=== PATIENT | female | born 1980 | race Caucasian/White ===

== ENCOUNTER 2016-08-28 21:10 | Emergency (ER) | payer OTHER ==
[2016-08-28 21:40] VITALS: BP 140/62; PULSE 84; RESP 18; TEMP 98.3
--- NOTE | 2016-08-28 22:00 | ED ---
General Adult HPI - General Chief complaint: Back Pain/Injury Stated complaint: Back Pain-Hx Scoliosis Sx Time Seen by Provider: 08/28/16 21:53 Source: patient, RN notes reviewed Mode of arrival: ambulatory Limitations: no limitations - History of Present Illness Initial comments: Patient is a pleasant 35-year-old female presenting to the emergency Department with lower back pain. Onset of symptoms was 2 or 3 days ago. Discomfort increases with sitting to standing as well as bending over. Discomfort is midline lower back. Patient does have history of scoliosis and surgical repair however does not generally have lower back problems. Patient took Motrin without much improvement. No weakness. No incontinence. No abdominal pain. Patient denies possible . - Related Data Home Medications Medication Instructions Recorded Confirmed Ibuprofen [Motrin] 400 mg PO Q6HR PRN 08/28/16 08/28/16 Naproxen Sodium [Aleve] 440 mg PO Q6H PRN 08/28/16 08/28/16 Previous Rx's Medication Instructions Recorded Hydrocodone/Acetaminophen [[place] 1 each PO Q4HR PRN #15 tab 08/28/16 5-325] Allergies Allergy/AdvReac Type Severity Reaction Status Date / Time No Known Allergies Allergy Verified 08/28/16 22:17 Review of Systems ROS Statement: Those systems with pertinent positive or pertinent negative responses have been documented in the HPI. ROS Other: All systems not noted in ROS Statement are negative. Constitutional: Denies: fever Eyes: Denies: eye pain ENT: Denies: ear pain Respiratory: Denies: cough Cardiovascular: Denies: chest pain Endocrine: Denies: fatigue Gastrointestinal: Denies: abdominal pain, nausea, vomiting Genitourinary: Denies: dysuria Musculoskeletal: Reports: back pain Skin: Denies: rash Neurological: Denies: weakness Past Medical History Additional Past Medical History / Comment(s): scoliosis History of Any Multi-Drug Resistant Organisms: None Reported Past Surgical History: Back Surgery Past Psychological History: No Psychological Hx Reported Smoking Status: Current every day smoker Past Alcohol Use History: None Reported Past Drug Use History: None Reported General Exam Limitations: no limitations General appearance: alert, in no apparent distress Head exam: Present: atraumatic Eye exam: Present: normal appearance, PERRL ENT exam: Present: normal oropharynx Neck exam: Present: normal inspection Respiratory exam: Present: normal lung sounds bilaterally Cardiovascular Exam: Present: regular rate, normal rhythm GI/Abdominal exam: Present: soft. Absent: distended, tenderness Extremities exam: Present: normal inspection, other (Straight leg is negative bilaterally) Back exam: Present: normal inspection, tenderness (Mild tenderness L4-L5 region) Neurological exam: Present: alert. Absent: motor sensory deficit Expanded Sensory exam: Lower Extremity Light Touch: Normal Motor strength exam: RLE: 5, LLE: 5 Psychiatric exam: Present: normal affect, normal mood Skin exam: Absent: rash Course Vital Signs 08/28/16 21:39 Temperature 98.3 F Pulse Rate 84 Respiratory 18 Rate Blood Pressure 140/62 O2 Sat by Pulse 99 Oximetry Medical Decision Making - Medical Decision Making Patient reexamined in updated. - Radiology Data Radiology results: image reviewed (Lower spine x-rays show no acute process) Disposition Clinical Impression: Low back pain Disposition: HOME SELF-CARE Condition: Stable Instructions: Acute Low Back Pain (ED) Additional Instructions: Please follow-up with primary care physician in the next day or 2 for recheck. Return for increased pain, weakness, loss of control of bowel or bladder, fever , worsening symptoms or other concerns. Prescriptions: Hydrocodone/Acetaminophen [[place] 5-325] 1 each PO Q4HR PRN #15 tab PRN Reason: Pain Referrals: None,Stated [Primary Care Provider] - 1-2 days Gato Ramirez MD [STAFF PHYSICIAN] - 1-2 days
--- NOTE | 2016-08-28 22:19 | XR ---
EXAMINATION TYPE: XR lumbar spine 2 or 3V DATE OF EXAM: 08/28/2016 10:14 PM COMPARISON: NONE HISTORY: Low back pain TECHNIQUE: 3 views FINDINGS: There is a mild thoracolumbar levoscoliosis. Disc spaces are normal. Posterior elements are intact. There is paraspinal margarita at the thoracolumbar junction. Sacroiliac joints are normal. IMPRESSION: Mild levoscoliosis. No fracture.
[2016-08-28] MEDS ORDERED: traMADol 50 MG STARTER PACK 3 TAB BTL PO STA (22:25)
== END 2016-08-28 22:35 | disposition home or self-care (01) ==
LOC: EC 21:10
DX: M54.5 Low back pain (principal); M41.9 Scoliosis, unspecified; F17.200 Nicotine dependence, unspecified, uncomplicated
CPT/HCPCS: 72100; 99283

== ENCOUNTER 2017-02-19 15:21 | Emergency (ER) | payer OTHER ==
[2017-02-19] MEDS ORDERED: ONDANSETRON 4 MG ODT STARTER PACK 2 TAB BTL PO STA (15:39)
[2017-02-19] MEDS ORDERED: HYDROmorphone 1 MG/ML 1 ML SYRINGE IM STA (15:40)
[2017-02-19] MEDS ORDERED: ORPHENADRINE 30 MG/ML 2 ML VIAL IM STA (15:41)
[2017-02-19 16:06] VITALS: RESP 18
--- NOTE | 2017-02-19 16:39 | ED ---
Back Pain HPI - General Chief Complaint: Back Pain/Injury Stated Complaint: back pain-[facility] Time Seen by Provider: 02/19/17 15:31 Source: patient, RN notes reviewed, old records reviewed Limitations: no limitations - History of Present Illness Initial Comments: This is a 36-year-old female with a history of scoliosis presenting to emergency Department chief complaint of mid thoracic and cervical back pain as well as lumbar back pain. Patient reports she was at work and had a lift a 30 pound box. She reports this is the second week at her job. She states that this is the first and she's had a due to this heavy lifting. 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 She reports that her scoliosis normally has the right shoulder blade protrude backward. Patient reports that since this injury her left shoulder blade is protruding outward she has pain over the shoulder blade. She denies any arm numbness. She denies any lower peripheral paresthesias. She denies any saddle anesthesias. - Related Data Home Medications Medication Instructions Recorded Confirmed Ibuprofen [Motrin] 400 mg PO Q6HR PRN 08/28/16 08/28/16 Naproxen Sodium [Aleve] 440 mg PO Q6H PRN 08/28/16 08/28/16 Previous Rx's Medication Instructions Recorded Hydrocodone/Acetaminophen [[place] 1 each PO Q4HR PRN #15 tab 08/28/16 5-325] Cyclobenzaprine [Flexeril] 10 mg PO TID #15 tab 02/19/17 HYDROcodone/APAP 10-325MG [[place] 1 tab PO Q6H PRN #15 tab 02/19/17 10-325] Allergies Allergy/AdvReac Type Severity Reaction Status Date / Time No Known Allergies Allergy Verified 02/19/17 15:29 Review of Systems ROS Statement: Those systems with pertinent positive or pertinent negative responses have been documented in the HPI. ROS Other: All systems not noted in ROS Statement are negative. Past Medical History Additional Past Medical History / Comment(s): scoliosis History of Any Multi-Drug Resistant Organisms: None Reported Past Surgical History: Back Surgery, Section, Cholecystectomy, Hysterectomy Past Psychological History: No Psychological Hx Reported Smoking Status: Current every day smoker Past Alcohol Use History: None Reported Past Drug Use History: None Reported General Exam - General Exam Comments Initial Comments: 36-year-old male. No acute distress. Limitations: no limitations General appearance: alert, in no apparent distress Head exam: Present: atraumatic, normocephalic, normal inspection Eye exam: Present: normal appearance, PERRL, EOMI. Absent: scleral icterus, conjunctival injection, periorbital swelling ENT exam: Present: normal exam, mucous membranes moist Neck exam: Present: normal inspection. Absent: tenderness, meningismus, lymphadenopathy Respiratory exam: Present: normal lung sounds bilaterally. Absent: respiratory distress, wheezes, rales, rhonchi, stridor Cardiovascular Exam: Present: regular rate, normal rhythm, normal heart sounds. Absent: systolic murmur, diastolic murmur, rubs, gallop, clicks GI/Abdominal exam: Present: soft, normal bowel sounds. Absent: distended, tenderness, guarding, rebound, rigid Extremities exam: Present: normal inspection, full ROM, normal capillary refill. Absent: tenderness, pedal edema, joint swelling, calf tenderness Back exam: Present: normal inspection Neurological exam: Present: alert, oriented X3, CN II-XII intact Psychiatric exam: Present: normal affect, normal mood Skin exam: Present: warm, dry, intact, normal color. Absent: rash Course Vital Signs 02/19/17 02/19/17 02/19/17 15:26 15:58 17:30 Temperature 97.8 F 98.2 F Pulse Rate 85 84 74 Respiratory 20 18 18 Rate Blood Pressure 121/75 121/72 130/78 O2 Sat by Pulse 100 98 98 Oximetry Medical Decision Making - Medical Decision Making This is a 36-year-old female with a history of scoliosis presenting to emergency Department chief complaint of mid thoracic and cervical back pain as well as lumbar back pain. Patient reports she was at work and had a lift a 30 pound box. She reports this is the second week at her job. She states that this is the first and she's had a due to this heavy lifting. 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 She reports that her scoliosis normally has the right shoulder blade protrude backward. X- rays reviewed and showed no evidence of any acute osseous abnormality. Patient given 1 IM Dilaudid and Norflex and Zofran starter pack. Patient reports that she is feeling much better at this time. Discussed that we'll discharge the patient with muscle relaxers instructed her pain medication. Discussed close follow-up with Dr. Powers. Patient given a note for work. Return parameters were discussed. - Radiology Data Radiology results: report reviewed X-ray shows no acute osseous abnormality of the lumbar spine. Fixation rods from scoliosis surgery evident. There is scoliosis present. Thoracic spine. Full thoracic vertebrae bodies. Pedicles are normal. No suspicious lytic areas are evident. Disc height are preserved. No acute osseous abnormality noted thoracic spine seen. Evidence of cervical kyphosis. No acute osseous abnormality evident. Disposition Clinical Impression: Scoliosis, Acute back pain, Muscle spasm Disposition: HOME SELF-CARE Condition: Good Instructions: Acute Low Back Pain (ED) Additional Instructions: Advised to follow-up with her primary care provider as well as orthopedic physician. Patient instructed to rest and apply heat and ice to the lower back. Return to the emergency department if any alarming signs or symptoms occur. Prescriptions: Cyclobenzaprine [Flexeril] 10 mg PO TID #15 tab HYDROcodone/APAP 10-325MG [[place] 10-325] 1 tab PO Q6H PRN #15 tab PRN Reason: Pain Referrals: Gato Ramirez MD [Primary Care Provider] - 1-2 days Time of Disposition: 17:08
--- NOTE | 2017-02-19 16:46 | XR ---
EXAMINATION TYPE: XR lumbar spine 2 or 3V DATE OF EXAM: 02/19/2017 COMPARISON: NONE HISTORY: Pain TECHNIQUE: Three-view lumbar spine FINDINGS: There 5 lumbar-type vertebral bodies. The pedicles are intact. There is a rotoscoliosis pre sent. Inferior portion of scoliosis fixation rods are evident at T12-L1. Cholecystectomy clips are wi thin the [id number]. Disc height and vertebral body heights appear preserved. IMPRESSION: 1. No acute osseous abnormality lumbar spine.
--- NOTE | 2017-02-19 16:47 | XR ---
EXAMINATION TYPE: XR cervical spine limited DATE OF EXAM: 02/19/2017 COMPARISON: NONE HISTORY: Fall, pain TECHNIQUE: Three-view cervical spine FINDINGS: There is a cervical kyphosis present. Disc heights are preserved. Vertebral body heights ar e preserved. Posterior spinal lamellar line is intact. Prevertebral space is normal. The odontoid tip is obscured by overlying occiput. IMPRESSION: 1. Cervical kyphosis. 2. No acute osseous abnormality evident.
--- NOTE | 2017-02-19 16:49 | XR ---
EXAMINATION TYPE: XR thoracic spine 2V DATE OF EXAM: 02/19/2017 COMPARISON: NONE HISTORY: Fall, pain history of scoliosis surgery TECHNIQUE: 2 view thoracic spine FINDINGS: Fixation rods from scoliosis surgery are evident. There is a scoliosis present through the thoracic spine. There are 12 thoracic type vertebral bodies. Visualized pedicles are normal. There are obscuration of some pedicles limitation due to rotation on additional pedicles. No suspicious lytic areas are evide nt. Disc heights appear preserved. The vertebral body heights appear preserved. IMPRESSION: 1. No acute osseous abnormality thoracic spine.
[2017-02-19 17:36] VITALS: BP 130/78; PULSE 74; TEMP 98.2
== END 2017-02-19 17:35 | disposition home or self-care (01) ==
LOC: EC 15:21
DX: M41.9 Scoliosis, unspecified (principal); M62.830 Muscle spasm of back; F17.200 Nicotine dependence, unspecified, uncomplicated; Z98.890 Other specified postprocedural states; X50.0XXA Overexertion from strenuous movement or load, initial encounter; Y93.89 Activity, other specified; Y99.0 Civilian activity done for income or pay; Y92.69 Other specified industrial and construction area as the place of occurrence of the external cause
CPT/HCPCS: 99284; 96372 ×2; 72070; 72040; 72100; J2360; J1170; S0119

== ENCOUNTER 2017-06-02 13:48 | Emergency (ER) | payer BC ==
[2017-06-02 14:03] VITALS: RESP 18
[2017-06-02] MEDS ORDERED: HYDROmorphone 1 MG/ML 1 ML SYRINGE IVP STA (15:17)
[2017-06-02] MEDS ORDERED: ONDANSETRON 4 MG/2 ML VIAL IVP STA (15:17)
--- NOTE | 2017-06-02 15:28 | ED ---
General Adult HPI - General Chief complaint: Abdominal Pain Stated complaint: RT Side pain Time Seen by Provider: 06/02/17 15:05 Source: patient, RN notes reviewed Mode of arrival: ambulatory Limitations: no limitations - History of Present Illness Initial comments: Patient is a 36-year-old female who presents emergency room today with a chief complaint of right lower quadrant pain started late last night. She does admit that she had some of these symptoms in the past with ovarian cyst but states it seems to be more severe. States pain has been constant but at times. Getting to be a sharp pain. She states there is some radiation around to the right flank area. Patient does admit that she had a soft looser bowel movement this morning. She states this is not completely unusual for her. Patient denies any other complaints or symptoms. Patient denies any recent fever, chills, shortness of breath, chest pain, back pain, vomiting, numbness or tingling, dysuria or hematuria, constipation, headaches or visual changes, or any other complaints. - Related Data Previous Rx's Medication Instructions Recorded Hydrocodone/Acetaminophen [[place] 1 each PO Q6HR PRN #12 tab 06/02/17 5-325] Ibuprofen [Motrin] 600 mg PO Q6HR PRN #40 day 06/02/17 Ondansetron Odt [Zofran ODT] 4 mg PO Q8HR PRN #20 tab 06/02/17 Allergies Allergy/AdvReac Type Severity Reaction Status Date / Time No Known Allergies Allergy Verified 06/02/17 15:06 Review of Systems ROS Statement: Those systems with pertinent positive or pertinent negative responses have been documented in the HPI. ROS Other: All systems not noted in ROS Statement are negative. Past Medical History Additional Past Medical History / Comment(s): scoliosis History of Any Multi-Drug Resistant Organisms: None Reported Past Surgical History: Back Surgery, Section, Cholecystectomy, Hysterectomy Past Psychological History: No Psychological Hx Reported Smoking Status: Current every day smoker Past Alcohol Use History: None Reported Past Drug Use History: None Reported General Exam - General Exam Comments Initial Comments: General: The patient is awake and alert, in no distress, and does not appear acutely ill. Eye: Pupils are equal, round and reactive to light, extra-ocular movements are intact. No nystagmus. There is normal conjunctiva bilaterally. No signs of icterus. Ears, nose, mouth and throat: There are moist mucous membranes and no oral lesions. Neck: The neck is supple, there is no tenderness or JVD. Cardiovascular: There is a regular rate and rhythm. No murmur, rub or gallop is appreciated. Respiratory: Lungs are clear to auscultation, respirations are non-labored, breath sounds are equal. No wheezes, stridor, rales, or rhonchi. Gastrointestinal: Normal appearance of her abdomen. Normal bowel sounds. Abdomen soft on palpation. Patient does have tenderness in the quadrant. No rebound tenderness. No guarding. Musculoskeletal: Normal ROM, no tenderness. Strength 5/5. Sensation intact. Pulses equal bilaterally 2+. Neurological: A&O x 3. CN II-XII intact, There are no obvious motor or sensory deficits. Coordination appears grossly intact. Speech is normal. Skin: Skin is warm and dry and no rashes or lesions are noted. Psychiatric: Cooperative, appropriate mood & affect, normal judgment. Limitations: no limitations Course Vital Signs 06/02/17 06/02/17 14:01 16:24 Temperature 98.2 F 98.1 F Pulse Rate 88 58 L Respiratory 18 18 Rate Blood Pressure 131/64 126/59 O2 Sat by Pulse 99 98 Oximetry Medical Decision Making - Medical Decision Making Patient labs been reviewed and are unremarkable. Patient ultrasound does show bilateral ovarian cyst measuring approximately 1 cm each. These results were discussed with the patient. Ultrasound of the appendix was negative there was no evidence of any inflammation in the right lower quadrant. The appendix however was not visualized. Her labs reveal no elevated white count. Patient has no fever here in emergency room. Signs of an early appendicitis were discussed with patient and she is advised return to emergency room symptoms increase or worsen. She feels comfortable being discharged home without a CT at this time. Patient will be treated with pain medication and advised to return if any symptoms increase or worsen. She states understanding and is in agreement. - Lab Data Result diagrams: 06/02/17 15:31 06/02/17 15:31 Lab Results 06/02/17 06/02/17 06/02/17 Range/Units 15:31 15:31 15:31 WBC 7.8 (3.8-10.6) k/uL RBC 4.85 (3.80-5.40) m/uL Hgb 14.2 (11.4-16.0) gm/dL Hct 44.3 (34.0-46.0) % MCV 91.3 (80.0-100.0) fL MCH 29.2 (25.0-35.0) pg MCHC 31.9 (31.0-37.0) g/dL RDW 12.3 (11.5-15.5) % Plt Count 352 (150-450) k/uL Neutrophils % 63 % Lymphocytes % 27 % Monocytes % 5 % Eosinophils % 3 % Basophils % 0 % Neutrophils # 5.0 (1.3-7.7) k/uL Lymphocytes # 2.1 (1.0-4.8) k/uL Monocytes # 0.4 (0-1.0) k/uL Eosinophils # 0.3 (0-0.7) k/uL Basophils # 0.0 (0-0.2) k/uL Sodium 141 (137-145) mmol/L Potassium 3.8 (3.5-5.1) mmol/L Chloride 105 (98-107) mmol/L Carbon Dioxide 27 (22-30) mmol/L Anion Gap 9 mmol/L BUN 6 L (7-17) mg/dL Creatinine 0.60 (0.52-1.04) mg/dL Est GFR (MDRD) Af Amer >60 (>60 ml/min/1.73 sqM) Est GFR (MDRD) Non-Af >60 (>60 ml/min/1.73 sqM) Glucose 87 (74-99) mg/dL Calcium 9.8 (8.4-10.2) mg/dL Total Bilirubin 0.4 (0.2-1.3) mg/dL AST 14 (14-36) U/L ALT 26 (9-52) U/L Alkaline Phosphatase 58 (38-126) U/L Total Protein 6.9 (6.3-8.2) g/dL Albumin 4.1 (3.5-5.0) g/dL Amylase 69 (30-110) U/L Lipase 398 H (23-300) U/L Urine Color Colorless Urine Appearance Clear (Clear) Urine pH 6.5 (5.0-8.0) Ur Specific [place] 1.001 (1.001-1.035) Urine Protein Negative (Negative) Urine Glucose (UA) Negative (Negative) Urine Ketones Negative (Negative) Urine Blood Negative (Negative) Urine Nitrite Negative (Negative) Urine Bilirubin Negative (Negative) Urine Urobilinogen <2.0 (<2.0) mg/dL Ur Leukocyte Esterase Negative (Negative) Urine HCG, Qual (Not Detectd) 06/02/17 Range/Units 15:31 WBC (3.8-10.6) k/uL RBC (3.80-5.40) m/uL Hgb (11.4-16.0) gm/dL Hct (34.0-46.0) % MCV (80.0-100.0) fL MCH (25.0-35.0) pg MCHC (31.0-37.0) g/dL RDW (11.5-15.5) % Plt Count (150-450) k/uL Neutrophils % % Lymphocytes % % Monocytes % % Eosinophils % % Basophils % % Neutrophils # (1.3-7.7) k/uL Lymphocytes # (1.0-4.8) k/uL Monocytes # (0-1.0) k/uL Eosinophils # (0-0.7) k/uL Basophils # (0-0.2) k/uL Sodium (137-145) mmol/L Potassium (3.5-5.1) mmol/L Chloride (98-107) mmol/L Carbon Dioxide (22-30) mmol/L Anion Gap mmol/L BUN (7-17) mg/dL Creatinine (0.52-1.04) mg/dL Est GFR (MDRD) Af Amer (>60 ml/min/1.73 sqM) Est GFR (MDRD) Non-Af (>60 ml/min/1.73 sqM) Glucose (74-99) mg/dL Calcium (8.4-10.2) mg/dL Total Bilirubin (0.2-1.3) mg/dL AST (14-36) U/L ALT (9-52) U/L Alkaline Phosphatase (38-126) U/L Total Protein (6.3-8.2) g/dL Albumin (3.5-5.0) g/dL Amylase (30-110) U/L Lipase (23-300) U/L Urine Color Urine Appearance (Clear) Urine pH (5.0-8.0) Ur Specific [place] (1.001-1.035) Urine Protein (Negative) Urine Glucose (UA) (Negative) Urine Ketones (Negative) Urine Blood (Negative) Urine Nitrite (Negative) Urine Bilirubin (Negative) Urine Urobilinogen (<2.0) mg/dL Ur Leukocyte Esterase (Negative) Urine HCG, Qual Not Detected (Not Detectd) Disposition Clinical Impression: Ovarian cyst Disposition: HOME SELF-CARE Condition: Good Instructions: Ovarian Cyst (ED) Additional Instructions: Please use medication as discussed. Please follow-up with family doctor in the next 2 days. Please return to emergency room if the symptoms increase or worsen or for any other concerns. Prescriptions: Hydrocodone/Acetaminophen [[place] 5-325] 1 each PO Q6HR PRN #12 tab PRN Reason: Pain Ibuprofen [Motrin] 600 mg PO Q6HR PRN #40 day PRN Reason: Pain Ondansetron Odt [Zofran ODT] 4 mg PO Q8HR PRN #20 tab PRN Reason: Nausea Referrals: Gato Ramirez MD [Primary Care Provider] - 1-2 days Time of Disposition: 17:30
[2017-06-02 15:45] LABS: Appearance,Urine Clear (Clear); Bilirubin,Urine Negative (Negative); Glucose,Urine (UA) Negative (Negative); Ketones,Urine Negative (Negative); Leukocyte Esterase,Urine Negative (Negative); Nitrite,Urine Negative (Negative); PH, Urine 6.5 (5.0-8.0); Protein,Urine Negative (Negative); Specific Gravity,Urine 1.001 (1.001-1.035); UA Billing (MACRO vs. MICRO) CHEM; Urobilinogen,Urine <2.0 mg/dL (<2.0)
[2017-06-02 15:52] LABS: Basophils % (A) 0 %; CH 29.6; CHCM 32.6; Eosinophils # (A) 0.3 k/uL (0-0.7); Eosinophils % (A) 3 %; HCT 44.3 % (34.0-46.0); HGB 14.2 gm/dL (11.4-16.0); Luc # (Auto) 0.14; Luc % (Auto) 2; Lymphocytes # (A) 2.1 k/uL (1.0-4.8); Lymphocytes % (A) 27 %; MCH 29.2 pg (25.0-35.0); MCHC 31.9 g/dL (31.0-37.0); MCV 91.3 fL (80.0-100.0); Mean Platelet Volume 6.7; Monocytes # (A) 0.4 k/uL (0-1.0); Monocytes % (A) 5 %; Neutrophils % (A) 63 %; RBC 4.85 m/uL (3.80-5.40); RDW 12.3 % (11.5-15.5); WBC 7.8 k/uL (3.8-10.6); WBC (Perox) 7.79
[2017-06-02 15:54] LABS: ALT 26 U/L (9-52); AST 14 U/L (14-36); Alkaline Phosphatase 58 U/L (38-126); Amylase 69 U/L (30-110); Anion Gap 9 mmol/L; Blood Urea Nitrogen 6 mg/dL (7-17); Calcium 9.8 mg/dL (8.4-10.2); Carbon Dioxide 27 mmol/L (22-30); Chloride 105 mmol/L (98-107); Glucose 87 mg/dL (74-99); Non-African American GFR(MDRD) >60 (>60 ml/min/1.73 sqM); Potassium 3.8 mmol/L (3.5-5.1); Sodium 141 mmol/L (137-145); Total Bilirubin 0.4 mg/dL (0.2-1.3); Total Protein 6.9 g/dL (6.3-8.2)
--- NOTE | 2017-06-02 17:12 | US ---
EXAMINATION TYPE: US abdomen APPY DATE OF EXAM: 06/02/2017 COMPARISON: NONE CLINICAL HISTORY: Pain. Right pelvic pain and nausea x 1 day APPENDIX Appendix not seen with certainty by ultrasound at this time IMPRESSION: Appendix not seen. No solid or cystic mass identified. No sign of appendicitis.
--- NOTE | 2017-06-02 17:14 | US ---
EXAMINATION TYPE: US transvaginal DATE OF EXAM: 06/02/2017 COMPARISON: NONE CLINICAL HISTORY: pain. Right pelvic pain and nausea x 1 day, 3, para 3, history of hysterect yuli 2014, and tubal ligation TECHNIQUE: Transvaginal (TV) ER exam Date of LMP: 2014 EXAM MEASUREMENTS: Uterus: surgically absent Endometrial Stripe: surgically absent Right Ovary: 2.7 x 1.8 x 2.1 cm Left Ovary: 2.2 x 1.7 x 1.9 cm 1. Uterus: surgically absent 2. Endometrium: surgically absent 3. Right Ovary: 1.4 x 1.3 x 1.3cm hypoechoic area 4. Left Ovary: 1.0 x 1.2 x 1.2cm hypoechoic area Spectral, color and waveform doppler imaging shows good arterial and venous flow within the ovaries ; there is no evidence for ovarian torsion. 5. Bilateral Adnexa: wnl 6. Posterior cul-de-sac: wnl IMPRESSION: Bilateral ovarian cysts. No solid adnexal mass. No evidence of ovarian torsion. Hysterect yuli noted.
[2017-06-02 17:39] VITALS: BP 140/89; PULSE 69; TEMP 98
== END 2017-06-02 17:39 | disposition home or self-care (01) ==
LOC: EC 13:48
DX: N83.201 Unspecified ovarian cyst, right side (principal); N83.202 Unspecified ovarian cyst, left side; F17.200 Nicotine dependence, unspecified, uncomplicated; Z90.49 Acquired absence of other specified parts of digestive tract; Z90.710 Acquired absence of both cervix and uterus
CPT/HCPCS: 36415; 80053; 82150; 83690; 85025; 81003; 81025; 93975; 76705; 76830; 99284; 96374; 96375; J2405; J1170

== ENCOUNTER 2017-12-09 18:01 | Emergency (ER) | payer BC, OTHER ==
[2017-12-09 18:27] VITALS: RESP 18
[2017-12-09] MEDS ORDERED: ONDANSETRON 4 MG/2 ML VIAL IVP STA (19:25)
[2017-12-09] MEDS ORDERED: SODIUM CHLORIDE 0.9% 1,000 ML IV STA (19:25)
[2017-12-09] MEDS ORDERED: KETOROLAC 30 MG/ML 1 ML VIAL IVP STA (19:25)
--- NOTE | 2017-12-09 19:30 | ED ---
Abdominal Pain HPI - General Chief Complaint: Abdominal Pain Stated Complaint: abd pain Time Seen by Provider: 12/09/17 19:01 Source: patient Mode of arrival: ambulatory Limitations: no limitations - History of Present Illness Initial Comments: 37-year-old female patient presents to the emergency department today for evaluation of abdominal pain. Patient states pain started around 2 PM this afternoon. States that the pain has been waxing and waning since then. She stated the is mostly located around her umbilicus but does radiate into all quadrants of her abdomen. She denies any radiation of the pain to her back. States that straining to urinate does increase the pain. She states she has been nauseated but has not vomited. She denies any diarrhea. States that she did have a small bowel movement yesterday and no bowel movement today. No hematochezia or melena. She has been having hot and cold flashes. Patient has had cholecystectomy and partial hysterectomy. Patient denies any recent rash, fever, shortness breath, chest pain, numbness, tingling, dizziness, weakness, hematuria, dysuria, urinary urgency, urinary frequency, headache, visual changes , or any other complaints. - Related Data Home Medications Medication Instructions Recorded Confirmed Acetaminophen-Codeine 300-30mg 1 tab PO BID PRN 12/09/17 12/09/17 [Tylenol w/codeine #3] Previous Rx's Medication Instructions Recorded Dicyclomine [Bentyl] 20 mg PO QID #10 tablet 12/09/17 Allergies Allergy/AdvReac Type Severity Reaction Status Date / Time morphine Allergy Itching Verified 12/09/17 19:15 Review of Systems ROS Statement: Those systems with pertinent positive or pertinent negative responses have been documented in the HPI. ROS Other: All systems not noted in ROS Statement are negative. Past Medical History Additional Past Medical History / Comment(s): scoliosis History of Any Multi-Drug Resistant Organisms: None Reported Past Surgical History: Back Surgery, Section, Cholecystectomy, Hysterectomy Past Psychological History: No Psychological Hx Reported Smoking Status: Current every day smoker Past Alcohol Use History: None Reported Past Drug Use History: None Reported General Exam Limitations: no limitations General appearance: alert, in no apparent distress, other (This is a well- developed, well-nourished adult female patient in no acute distress. Vital signs upon presentation are temperature 98.3F, pulse 95, respirations 18, blood pressure 112/81, pulse ox 100% on room air.) Eye exam: Present: normal appearance, PERRL, EOMI. Absent: scleral icterus, conjunctival injection, periorbital swelling ENT exam: Present: normal exam, normal oropharynx, mucous membranes moist Respiratory exam: Present: normal lung sounds bilaterally. Absent: respiratory distress, wheezes, rales, rhonchi, stridor Cardiovascular Exam: Present: regular rate, normal rhythm, normal heart sounds. Absent: systolic murmur, diastolic murmur, rubs, gallop, clicks GI/Abdominal exam: Present: soft, tenderness (Midepigastric, periumbilical, and left lower quadrant tenderness), normal bowel sounds. Absent: distended, guarding, rebound, rigid Back exam: Present: normal inspection. Absent: CVA tenderness (R), CVA tenderness (L) Neurological exam: Present: alert, oriented X3, CN II-XII intact Psychiatric exam: Present: normal affect, normal mood Skin exam: Present: warm, dry, intact, normal color. Absent: rash Course Vital Signs 12/09/17 12/09/17 12/09/17 18:25 20:29 21:53 Temperature 98.3 F 98.1 F 98.1 F Pulse Rate 95 64 81 Respiratory 18 18 18 Rate Blood Pressure 112/81 127/66 119/61 O2 Sat by Pulse 100 100 98 Oximetry Medical Decision Making - Medical Decision Making 37-year-old female patient presents to the emergency department today for evaluation of generalized abdominal pain. Physical examination did reveal some mild generalized abdominal tenderness. Vital signs are stable. Labs reviewed and are unremarkable. CT of the abdomen and pelvis was obtained and showed no acute intra-abdominal process. Did discuss findings and results with the patient. We did discuss possibility of a gastrointestinal virus causing her symptoms. She'll be given a prescription for Bentyl. She is instructed to follow-up with her primary care physician for recheck in 1-2 days. Return parameters discussed in detail. She verbalizes understanding and agrees with this plan. - Lab Data Result diagrams: 12/09/17 19:40 12/09/17 19:40 Lab Results 12/09/17 12/09/17 12/09/17 Range/Units 19:40 19:40 19:40 WBC 8.2 (3.8-10.6) k/uL RBC 4.45 (3.80-5.40) m/uL Hgb 13.2 (11.4-16.0) gm/dL Hct 39.5 (34.0-46.0) % MCV 88.8 (80.0-100.0) fL MCH 29.8 (25.0-35.0) pg MCHC 33.5 (31.0-37.0) g/dL RDW 12.6 (11.5-15.5) % Plt Count 359 (150-450) k/uL Neutrophils % 58 % Lymphocytes % 31 % Monocytes % 5 % Eosinophils % 3 % Basophils % 0 % Neutrophils # 4.8 (1.3-7.7) k/uL Lymphocytes # 2.6 (1.0-4.8) k/uL Monocytes # 0.5 (0-1.0) k/uL Eosinophils # 0.3 (0-0.7) k/uL Basophils # 0.0 (0-0.2) k/uL Sodium 143 (137-145) mmol/L Potassium 3.9 (3.5-5.1) mmol/L Chloride 102 (98-107) mmol/L Carbon Dioxide 29 (22-30) mmol/L Anion Gap 12 mmol/L BUN 9 (7-17) mg/dL Creatinine 0.60 (0.52-1.04) mg/dL Est GFR (CKD-EPI)AfAm >90 (>60 ml/min/1.73 sqM) Est GFR (CKD-EPI)NonAf >90 (>60 ml/min/1.73 sqM) Glucose 74 (74-99) mg/dL Calcium 9.5 (8.4-10.2) mg/dL Total Bilirubin 0.2 (0.2-1.3) mg/dL AST 17 (14-36) U/L ALT 24 (9-52) U/L Alkaline Phosphatase 56 (38-126) U/L Total Protein 6.8 (6.3-8.2) g/dL Albumin 4.2 (3.5-5.0) g/dL Amylase 77 (30-110) U/L Lipase 201 (23-300) U/L Urine Color Light Yellow Urine Appearance Clear (Clear) Urine pH 6.5 (5.0-8.0) Ur Specific [place] 1.007 (1.001-1.035) Urine Protein Negative (Negative) Urine Glucose (UA) Negative (Negative) Urine Ketones Negative (Negative) Urine Blood Negative (Negative) Urine Nitrite Negative (Negative) Urine Bilirubin Negative (Negative) Urine Urobilinogen <2.0 (<2.0) mg/dL Ur Leukocyte Esterase Negative (Negative) - Radiology Data Radiology results: report reviewed, image reviewed CT of the abdomen and pelvis with contrast was obtained. Report was reviewed in its entirety. Impression by Dr. Aguilar shows negative computed tomography scan of the abdomen and pelvis. Two-view x-ray of the abdomen was obtained. Report was reviewed in its entirety. Impression by Dr. Aguilar reads nonacute abdomen. Disposition Clinical Impression: Abdominal pain Disposition: HOME SELF-CARE Condition: Good Instructions: Abdominal Pain (ED) Additional Instructions: Increase fluids. Take medications as directed. Follow-up with your primary care physician for recheck. Return here immediately for any new, worsening, or concerning symptoms. Prescriptions: Dicyclomine [Bentyl] 20 mg PO QID #10 tablet Is patient prescribed a controlled substance at d/c from ED?: No Referrals: Gato Ramirez MD [Primary Care Provider] - 1-2 days Time of Disposition: 21:21
[2017-12-09 20:01] LABS: Appearance,Urine Clear (Clear); Bilirubin,Urine Negative (Negative); Blood,Urine Negative (Negative); Color,Urine Light Yellow; Glucose,Urine (UA) Negative (Negative); Ketones,Urine Negative (Negative); Leukocyte Esterase,Urine Negative (Negative); Nitrite,Urine Negative (Negative); PH, Urine 6.5 (5.0-8.0); Protein,Urine Negative (Negative); Specific Gravity,Urine 1.007 (1.001-1.035); Urobilinogen,Urine <2.0 mg/dL (<2.0)
[2017-12-09 20:02] LABS: Basophils % (A) 0 %; Eosinophils # (A) 0.3 k/uL (0-0.7); Eosinophils % (A) 3 %; HCT 39.5 % (34.0-46.0); HGB 13.2 gm/dL (11.4-16.0); Lymphocytes # (A) 2.6 k/uL (1.0-4.8); Lymphocytes % (A) 31 %; MCH 29.8 pg (25.0-35.0); MCHC 33.5 g/dL (31.0-37.0); MCV 88.8 fL (80.0-100.0); Mean Platelet Volume 6.4; Monocytes # (A) 0.5 k/uL (0-1.0); Monocytes % (A) 5 %; Neutrophils # (A) 4.8 k/uL (1.3-7.7); Neutrophils % (A) 58 %; Platelet Count 359 k/uL (150-450); RBC 4.45 m/uL (3.80-5.40); RDW 12.6 % (11.5-15.5); WBC 8.2 k/uL (3.8-10.6)
--- NOTE | 2017-12-09 20:11 | XR ---
EXAMINATION TYPE: XR KUB DATE OF EXAM: 12/09/2017 COMPARISON: NONE HISTORY: Abdominal pain TECHNIQUE: 2 views FINDINGS: Bowel gas pattern is normal. There is no sign of intestinal obstruction or pneumoperitoneum . Fecal pattern is normal. There is thoracolumbar levoscoliosis. There is thoracic dextroscoliosis. T here are paraspinal rods. There are clips from cholecystectomy. There is no evidence of a mass. There are no pathologic calcifications over the kidneys. IMPRESSION: Nonacute abdomen.
[2017-12-09 20:14] LABS: ALT 24 U/L (9-52); AST 17 U/L (14-36); Albumin 4.2 g/dL (3.5-5.0); Alkaline Phosphatase 56 U/L (38-126); Amylase 77 U/L (30-110); Anion Gap 12 mmol/L; Blood Urea Nitrogen 9 mg/dL (7-17); Calcium 9.5 mg/dL (8.4-10.2); Carbon Dioxide 29 mmol/L (22-30); Chloride 102 mmol/L (98-107); Glucose 74 mg/dL (74-99); Lipase 201 U/L (23-300); Potassium 3.9 mmol/L (3.5-5.1); Sodium 143 mmol/L (137-145); Total Bilirubin 0.2 mg/dL (0.2-1.3); Total Protein 6.8 g/dL (6.3-8.2)
[2017-12-09 20:31] VITALS: TEMP 98.1
[2017-12-09] MEDS ORDERED: DICYCLOMINE 10 MG/ML 2 ML AMP IM STA (20:36)
[2017-12-09] MEDS ORDERED: RX INFO: IV CONTRAST WAS GIVEN 1 EACH MISC MISCELLANE PRN (20:36)
--- NOTE | 2017-12-09 21:14 | CT ---
EXAMINATION TYPE: CT abdomen pelvis w con DATE OF EXAM: 12/09/2017 COMPARISON: NONE HISTORY: Lower abdominal pain today CT DLP: 514 mGycm Automated exposure control for dose reduction was used. TECHNIQUE: Helical acquisition of images was performed from the lung bases through the pelvis. CONTRAST: Performed without Oral Contrast and with IV Contrast, patient injected with 100 mL of Isovue 300. FINDINGS: Lung bases are clear. There is no pleural effusion. Heart size is normal. There is no pericardial eff usion. There is thoracolumbar levoscoliosis. There are posterior rods. Liver shows no focal defect. Ducts are not dilated. There are clips from cholecystectomy. Spleen and pancreas appear normal. There is no adrenal mass. Kidneys show satisfactory contrast opacification. There is no hydronephrosi s. There is no retroperitoneal adenopathy. There is no ascites. Bladder distends smoothly. There is n o free fluid in the pelvis. I see no intestinal wall thickening. There are no dilated loops. Appendix appears normal. IMPRESSION: NEGATIVE CT SCAN OF THE ABDOMEN AND PELVIS.
[2017-12-09 21:54] VITALS: BP 119/61; PULSE 81
== END 2017-12-09 21:53 | disposition home or self-care (01) ==
LOC: EC 18:01
DX: R10.13 Epigastric pain (principal); R10.32 Left lower quadrant pain; R10.33 Periumbilical pain; F17.200 Nicotine dependence, unspecified, uncomplicated; Z88.5 Allergy status to narcotic agent; Z90.49 Acquired absence of other specified parts of digestive tract; Z90.710 Acquired absence of both cervix and uterus
CPT/HCPCS: 36415; 80053; 82150; 83690; 85025; 81003; 74018; 74177; 99284; 96374; 96375; 96372; J0500; J2405; J1885; Q9967

== ENCOUNTER 2018-01-28 16:42 | Emergency (ER) | payer BC, OTHER ==
[2018-01-28 17:14] VITALS: RESP 18
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
[2018-01-28] MEDS ORDERED: ACETAMINOPHEN TAB 500 MG TAB PO STA (19:03)
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
[2018-01-28 20:11] VITALS: BP 116/57; PULSE 75; TEMP 98.3
== END 2018-01-28 19:45 | disposition home or self-care (01) ==
LOC: EC 16:42
DX: S00.12XA Contusion of left eyelid and periocular area, initial encounter (principal); R40.2412 Glasgow coma scale score 13-15, at arrival to emergency department; R22.0 Localized swelling, mass and lump, head; F17.200 Nicotine dependence, unspecified, uncomplicated; Z88.5 Allergy status to narcotic agent; W20.8XXA Other cause of strike by thrown, projected or falling object, initial encounter; Y92.69 Other specified industrial and construction area as the place of occurrence of the external cause; Y99.0 Civilian activity done for income or pay
CPT/HCPCS: 70450; 70486; 72125; 99284

== ENCOUNTER 2018-11-11 09:31 | Emergency (ER) | payer BC ==
[2018-11-11 09:44] VITALS: BP 115/57; PULSE 73; RESP 18; TEMP 98.3
--- NOTE | 2018-11-11 10:22 | ED ---
Extremity Problem HPI - General Chief complaint: Extremity Problem,Nontraumatic Stated complaint: Left Foot Pain Time Seen by Provider: 11/11/18 09:48 Source: patient Mode of arrival: ambulatory Limitations: no limitations - History of Present Illness Initial comments: Patient is a 38-year-old female presenting to the ED with left foot pain. She reports the pain started 3 days ago remains constant throughout the day. She states the pain is dull and rates it a 5. The pain is present at rest but is aggravated when walking. Patient does not recall any traumatic injury to the left foot. She reports taking Tylenol and ibuprofen with minimal improvement. She reports difficulty walking and keeps her up at night. - Related Data Home Medications Medication Instructions Recorded Confirmed Acetaminophen-Codeine 300-30mg 1 tab PO BID PRN 12/09/17 01/28/18 [Tylenol w/codeine #3] Ibuprofen [Motrin Ib] 400 mg PO Q6H PRN 11/11/18 11/11/18 Allergies Allergy/AdvReac Type Severity Reaction Status Date / Time morphine Allergy Rash/Hives/ Verified 11/11/18 10:05 nausea Review of Systems ROS Statement: Those systems with pertinent positive or pertinent negative responses have been documented in the HPI. ROS Other: All systems not noted in ROS Statement are negative. Past Medical History Past Medical History: No Reported History Additional Past Medical History / Comment(s): scoliosis History of Any Multi-Drug Resistant Organisms: None Reported Past Surgical History: Back Surgery, Section, Cholecystectomy, Hysterectomy Past Psychological History: No Psychological Hx Reported Smoking Status: Current every day smoker Past Alcohol Use History: None Reported Past Drug Use History: None Reported General Exam Limitations: no limitations Left Foot/Toe exam: Present: full ROM, tenderness Course Vital Signs 11/11/18 09:41 Temperature 98.3 F Pulse Rate 73 Respiratory 18 Rate Blood Pressure 115/57 O2 Sat by Pulse 99 Oximetry Medical Decision Making - Medical Decision Making 38-year-old female presenting to the emergency department with left foot pain. Three-view x-ray was ordered and came back unremarkable. Patient was prescribed crutches and avoid putting full weight on the foot. Patient was instructed to follow-up with orthopedic. Disposition Clinical Impression: Foot sprain Disposition: HOME SELF-CARE Condition: Stable Additional Instructions: Return to emergency department if symptoms worsen Is patient prescribed a controlled substance at d/c from ED?: No Referrals: Gato Ramirez MD [Primary Care Provider] - 1-2 days Pb Canales DO [Doctor of Osteopathic Medicine] - 1-2 days Time of Disposition: 11:12
--- NOTE | 2018-11-11 10:25 | XR ---
EXAMINATION TYPE: XR foot complete LT DATE OF EXAM: 11/11/2018 CLINICAL HISTORY: Left foot pain for a few days with no known injury TECHNIQUE: Frontal, lateral, and oblique images of the left foot are obtained. COMPARISON: None FINDINGS: There is no acute fracture/dislocation evident in the left foot. The joint spaces in the left foot appear within normal limits. Small sesamoid bones are seen adjacent to the cuboid on the l ateral view only. The overlying soft tissue appears unremarkable. IMPRESSION: There is no acute fracture or dislocation in the left foot.
== END 2018-11-11 11:27 | disposition home or self-care (01) ==
LOC: EC 09:31
DX: S93.602A Unspecified sprain of left foot, initial encounter (principal); R26.2 Difficulty in walking, not elsewhere classified; F17.200 Nicotine dependence, unspecified, uncomplicated; Z90.49 Acquired absence of other specified parts of digestive tract; Z90.710 Acquired absence of both cervix and uterus; Z88.5 Allergy status to narcotic agent; X58.XXXA Exposure to other specified factors, initial encounter
CPT/HCPCS: 99283

== ENCOUNTER → 2021-05-27 | Outpatient (CLI) | payer BC ==
--- NOTE | 2021-05-27 14:02 | MM ---
Reason for exam: screening (asymptomatic). Baseline mammogram. History: Family history of breast cancer in paternal grandmother at age 45. Physical Findings: Nurse did not find any significant physical abnormalities on exam. MG Screening Mammo w CAD Bilateral CC and MLO view(s) were taken. The breast tissue is heterogeneously dense. This may lower the sensitivity of mammography. Finding: There are two circumscribed oval masses measuring 17mm and 15mm located 7 cm from the nipple in the middle, central position of the left breast. ASSESSMENT: Incomplete: need additional imaging evaluation, BI-RAD 0 RECOMMENDATION: Ultrasound of the left breast. [facility] will attempt to contact patient to return for ultrasound.
== END | disposition home or self-care (01) ==
LOC: RADMAMWWP 07:21
PROVIDERS: ATTEND Family Medicine
DX: Z12.31 Encounter for screening mammogram for malignant neoplasm of breast (principal); Z80.3 Family history of malignant neoplasm of breast
CPT/HCPCS: 77067

== ENCOUNTER → 2021-06-04 | Outpatient (CLI) | payer BC ==
--- NOTE | 2021-06-05 08:49 | USB ---
Reason for exam: additional evaluation requested from abnormal screening. History: Family history of breast cancer in paternal grandmother at age 45. Physical Findings: Breast exam preformed at baseline screening. US Breast Workup Limited LT Left limited breast ultrasound including focal area of concern, retroareolar and axilla demonstrates a 13 x 7 x 13mm oval, hypoechoic, avascular lesion at 12 o'clock and a 13 x 9 x 11mm oval, hypoechoic, avasular lesion at 1 o'clock. Similar lesions, questionable debris filled cysts versus solid lesions. These results were verbally communicated with the patient and result sheet given to the patient on 06/04/21. ASSESSMENT: Suspicious, BI-RAD 4 RECOMMENDATION: Ultrasound core biopsy of the left breast. (FNA +/- core biopsy or both lesions) Called office with mammographic findings and has scheduled an appointment for the patient for 06/11/21 at 10:[address] Parsons. PRELIMINARY REPORT CALLED AND FAXED TO DR. PARSONS ON 06/05/21.
== END | disposition home or self-care (01) ==
LOC: RADUSWWP 13:43
PROVIDERS: ATTEND Family Medicine
DX: N64.59 Other signs and symptoms in breast (principal); Z80.3 Family history of malignant neoplasm of breast

== ENCOUNTER → 2021-08-21 | Day surgery (SDC) | payer BC ==
[2021-08-21 07:26] VITALS: RESP 16
[2021-08-21 08:38] VITALS: BP 135/84; PULSE 76; TEMP 98.6
--- NOTE | 2021-08-21 09:50 | USB ---
EXAMINATION TYPE: US biopsy breast VAD LT, US biopsy breast add'l VAD LT, MG diagnostic mammo LT wo C AD DATE OF EXAM: 08/21/2021 CLINICAL HISTORY: N63 Breast Lump. TECHNIQUE: Ultrasound guided core biopsy of 2 sites 12 and 1:00 left breast. COMPARISON: NONE FINDINGS: The procedure of ultrasound guided core biopsy was explained to the patient. Benefits, alt ernatives, and risks were discussed. An informed consent was then obtained. The patient was placed in supine positioning for imaging and for the procedure. The overlying skin w as prepped and draped in usual sterile fashion. Lidocaine buffered with bicarbonate was used as anes thetic into the skin and subcutaneous tissue up to areas of concern in the left breast (12 and 1:00) breast. Under ultrasound guidance, a 12-gauge vacuum assisted biopsy gun device was used to obtain 3 core te[address] ples from each site. Following this, a biopsy clips were placed in each lesion. The patient tolerated the procedure well without any immediate complication. The patient was kept in the radiology department for short stay after the procedure and then discharged home in stable condi tion. IMPRESSION: Successful, uncomplicated ultrasound guided core biopsy of areas of concern in the left b reast (2 sites 12 and 1:00), full pathology results to follow.
== END | disposition home or self-care (01) ==
LOC: RADUSWWP 07:03
PROVIDERS: ATTEND Family Medicine
DX: D24.2 Benign neoplasm of left breast (principal)
CPT/HCPCS: 88305; 77065; 19083; 19084; A4648; J2001

== ENCOUNTER → 2022-12-29 | Outpatient (CLI) | payer BC ==
--- NOTE | 2022-12-29 21:01 | MR ---
EXAMINATION TYPE: MR brain and iac wo/w con DATE OF EXAM: 12/29/2022 7:45 PM CLINICAL INDICATION:Female, 42 years old with history of R42; COMPARISON: None TECHNIQUE: Multi planar, multi sequence imaging was performed through the brain. Specialized thin s equences were obtained through the internal auditory canals. Pre-and post gadolinium sequences were obtained. MR contrast: IV Contrast: 8.5 cc Gadavist FINDINGS: The sanders-white junctions, ventricular system, and cisterns appear unremarkable. Midline structures s how no abnormality. Diffusion-weighted imaging shows no evidence of restricted diffusion. The suscept ibility weighted images do not reveal any evidence for micro-hemorrhage. Dilation of the left carotid siphon up to 7 x 7 mm. The bone marrow signal is within normal limits. Paranasal sinuses and mastoid air cells: Mild scattered paranasal sinus disease. Visualized orbits: Orbital contents are intact. After administration of gadolinium, no abnormal enhancement is seen. The internal auditory canal sequences demonstrate no significant irregularity. The 7th cranial nerve s, 8 cranial nerves, and cerebellar pontine angles appear unremarkable. After the administration ghislaine olinium, no abnormal enhancement is seen within the internal auditory canals. Vascular loop: None. IMPRESSION: 1. 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 2. No evidence of intracranial mass nor acute/subacute CVA. 3. No evidence of internal auditory canal abnormality.
== END | disposition home or self-care (01) ==
LOC: RADMRIMAIN 18:17
PROVIDERS: ATTEND Otolaryngology
DX: R42 Dizziness and giddiness (principal)
CPT/HCPCS: 70553; A9585

== ENCOUNTER → 2023-01-02 | Outpatient (CLI) | payer BC ==
--- NOTE | 2023-01-02 23:18 | MR ---
EXAMINATION TYPE: MR angio head wo con DATE OF EXAM: 01/02/2023 8:12 PM CLINICAL INDICATION:Female, 42 years old with history of I67.1; Dizziness, Abnormal MRI 12-29-2022 COMPARISON: MRI 12/29/2022 Technical: MRA brain: 2D and 3-D [id number] Axial with MIP and 3-D reconstruction. Performed on a separate w orkstation. IV Contrast: none Findings: Vertebral arteries: The vertebral arteries are patent. The the vertebral arteries are codominant.. Basilar artery: The basilar artery is intact. The basilar artery bifurcation is normal. Internal Carotid arteries: Left carotid siphon 6 x 7 mm aneurysm. Right carotid siphon 6 x 5 mm aneu rysm. MADYSON: Patent with no evidence of aneurysm. ACOM: Present without evidence of aneurysm. MCA: Patent with no evidence of aneurysm. FUEL CELL DESIGNER: Patent with no evidence of aneurysm. PCOM: Hypoplastic bilaterally. 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 Right carotid siphon 6 x 5 mm aneurysm.
== END | disposition home or self-care (01) ==
LOC: RADMRIMAIN 18:47
PROVIDERS: ATTEND Otolaryngology
DX: I67.1 Cerebral aneurysm, nonruptured (principal)
CPT/HCPCS: 70544

== ENCOUNTER → 2023-12-01 | Outpatient (CLI) | payer BC ==
[2023-12-01 13:52] LABS: INR 0.9 (<1.2); Partial Thromboplastin Time 23.4 sec (22.0-30.0); Prothrombin Time 10.3 sec (10.0-12.5)
[2023-12-01 18:35] LABS: Basophils # (A) 0.04 X 10*3/uL (0.00-0.10); Basophils % (A) 0.5 %; Eosinophils # (A) 0.06 X 10*3/uL (0.04-0.35); Eosinophils % (A) 0.8 %; HGB 13.2 g/dL (12.0-15.0); Lymphocytes # (A) 2.01 X 10*3/uL (0.90-5.00); Lymphocytes % (A) 26.9 %; MCHC 31.4 g/dL (32.0-37.0); MCV 89.2 FL (80.0-97.0); Mean Platelet Volume 8.8 FL (9.5-12.2); Monocytes # (A) 0.54 X 10*3/uL (0.20-1.00); Monocytes % (A) 7.2 %; NRBC Per 100 WBC 0 X 10*3/uL (0.00-0.01); Neutrophils % (A) 64.3 %; Platelet Count 409 X 10*3/uL (140-440); RBC 4.71 X 10*6/uL (4.10-5.20); RDW 12.6 % (11.5-14.5); WBC 7.47 X 10*3/uL (4.50-10.00)
[2023-12-01 21:22] LABS: Blood Urea Nitrogen 7.3 mg/dL (9.0-27.0)
== END | disposition home or self-care (01) ==
LOC: LABWHC1 12:15
PROVIDERS: ATTEND Neurological Surgery
DX: I72.9 Aneurysm of unspecified site (principal)
CPT/HCPCS: 36415; 82565; 84520; 85025; 85610; 85730

== ENCOUNTER → 2024-05-11 | Outpatient (CLI) | payer BC ==
--- NOTE | 2024-05-11 15:17 | MM ---
Reason for Exam: Clinical finding. Last mammogram was performed 2 year(s) and 11 month(s) ago. Patient History: Menarche at age 11. First Full-Term at age 15. Hysterectomy at age 34. Perimenopausal. 08/21/2021, Benign Core Biopsy on the left side. 08/21/2021, Benign Core Biopsy on the left side. Paternal grandmother had breast cancer, age 45. Risk Values: Felisha 5 year model risk: 1.5%. NCI Lifetime model risk: 11.1%. Tissue Density: The breasts are heterogeneously dense, which may obscure small masses. Findings: Analyzed By CAD. Chronic nodularity on the left. 2 of the nodules contain microclips from prior biopsies. Areas of bilateral asymmetric densities remain unchanged. No significant change from prior exams. Overall Assessment: Benign, BI-RAD 2 Management: Screening Mammogram of both breasts in 1 year. Results were given to the patient verbally at the time of exam. Patient should continue monthly self-breast exams. A clinical breast exam by your physician is recommended on an annual basis. This exam should not preclude additional follow-up of suspicious palpable abnormalities. Note on Felisha scores and lifetime risk: 1. A Felisha score greater than 3% is considered moderate risk. If this is the case, consider specialist referral to assess eligibility for a risk reducing agent. 2. If overall lifetime risk for the development of breast cancer is 20% or higher, the patient may qualify for future screening with alternating mammogram and breast MRI. [facility], , 05/11/2024 3:14 PM. Electronically signed and approved by: Julio César Mckinney M.D. Radiologist
== END | disposition home or self-care (01) ==
LOC: RADMAMWWP 14:47
PROVIDERS: ATTEND Family Medicine
CPT/HCPCS: 77062; 77066